=== PATIENT | female | born 1990 | race African-American/Black ===

== ENCOUNTER 2016-04-15 10:24 | Emergency (ER) | payer MEDICAID, OTHER ==
[~2016-04-15] VITALS: Ht 162.6 cm; Wt 58.5 kg
[2016-04-15] MEDS ORDERED: NKM (10:44)
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
[2016-04-15 11:00] VITALS: BP 130/76
--- NOTE | 2016-04-15 12:05 | Diagnostic Imaging Report ---
Indication: Chest Pain Comparison: None A single view chest radiograph was obtained. Findings: Cardiomediastinal appearance is within normal limits for age. Pulmonary vascularity is appropriate. The diaphragmatic contour is smooth and costophrenic angles are sharp. No pleural effusions are identified. The bones are unremarkable. Impression: No acute findings
[2016-04-15] MEDS ORDERED: ROBAXIN-750750 MG PO (12:41)
[2016-04-15] MEDS ORDERED: IBUPROFEN600 MG ORAL (12:41)
[2016-04-15 13:30] VITALS: BP 128/77
[2016-04-15 13:56] VITALS: BP 130/76
--- NOTE | 2016-04-25 12:59 | Diagnostic Imaging Report ---
Indication: Back pain Comparison: None Findings: 3 views of the lumbar spine were obtained. No acute fracture or malalignment is identified. Vertebral body heights and disk spaces are well maintained. Posterior elements are unremarkable. Impression: No acute findings.
== END 2016-04-15 13:50 | disposition home or self-care (01) ==
LOC: EMR 11:05
DX: M25.512 Pain in left shoulder (principal); R07.89 Other chest pain; Z91.012 Allergy to eggs; V43.52XA Car driver injured in collision with other type car in traffic accident, initial encounter; Y92.410 Unspecified street and highway as the place of occurrence of the external cause; Y99.8 Other external cause status
CPT/HCPCS: 71010; 72020; 81025; 99283